=== PATIENT | male | born 1935 | race African-American/Black ===

== ENCOUNTER 2019-05-23 07:42 | Inpatient (IN) | payer MEDICARE, MEDICAID ==
[~2019-05-23] VITALS: Ht 170.2 cm; Wt 64.0 kg
[~2019-05-23 07:42] MED LIST: ASPI-1393 PO
[2019-05-23 08:22] LABS: EOSINOPHILS % 7.8 % (0.0-5.0); HEMATOCRIT. 33.4 % (42.0-52.0); HEMOGLOBIN. 11.1 g/dL (14.0-18.0); LYMPHOCYTES % 52.6 % (20.0-50.0); MEAN CORPUSCULAR VOLUME 98.9 fL (80.0-94.0); MEAN PLATELET VOLUME 8.5 fl (7.4-10.4); NEUTROPHILS % 31.6 % (40.0-76.0); PLATELET 159 x1000/uL (130-400); RED BLOOD CELL COUNT 3.38 mill/uL (4.7-6.1)
[2019-05-23 08:28] LABS: CLARITY URINE CLEAR (CLEAR); COLOR URINE YELLOW (YELLOW); KETONES URINE NEGATIVE (NEGATIVE); LEUKOCYTE ESTERASE URINE NEGATIVE (NEGATIVE); NITRITE URINE NEGATIVE (NEGATIVE); OCCULT BLOOD URINE NEGATIVE (NEGATIVE); PH URINE 5.5 (4.5-8.0); PROTEIN URINE NEGATIVE (NEGATIVE); UROBILINOGEN URINE 0.2 E.U./dL (0.2-1.0)
[2019-05-23 08:29] LABS: CHLORIDE 107 mEq/L (98-107)
[2019-05-23 08:30] LABS: PROTHROMBIN TIME 10.2 sec (9.6-11.0)
[2019-05-23 08:33] LABS: ETHANOL BLOOD < 10 mg/dL
[2019-05-23 08:36] LABS: LDL CHOLESTEROL 96 mg/dL (5-100)
[2019-05-23 08:49] LABS: *AMPHETAMINES SCREEN URINE NEGATIVE (NEGATIVE); *BARBITURATES SCREEN URINE NEGATIVE (NEGATIVE); *BENZODIAZEPINES SCREEN URINE NEGATIVE (NEGATIVE); *COCAINE SCREEN URINE NEGATIVE (NEGATIVE); METHADONE URINE SCREEN NEGATIVE (NEGATIVE); OPIATES URINE SCREEN NEGATIVE (NEGATIVE)
[2019-05-23 08:50] LABS: CANNABINOID URINE SCREEN NEGATIVE (NEGATIVE); PHENCYCLIDINE URINE SCREEN NEGATIVE (NEGATIVE)
[2019-05-23] MEDS ORDERED: ASPIRIN 325MG EC TABLET PO ONE (09:30)
[2019-05-23 14:20] VITALS: BP 109/57
[2019-05-23 14:30] VITALS: BP 109/57
[2019-05-23] MEDS ORDERED: HYDROCODONE/ACETAMINOPHEN 5/325MG TABLET PO PRN (15:45)
[2019-05-23] MEDS ORDERED: GUAIFENESIN 200MG/10ML SUGAR FREE UDC PO PRN (15:45)
[2019-05-23] MEDS ORDERED: ACETAMINOPHEN 650MG SUPP PR PRN (15:45)
[2019-05-23] MEDS ORDERED: DOCUSATE SODIUM 100MG CAPSULE PO PRN (15:45)
[2019-05-23] MEDS ORDERED: CLONIDINE 0.1MG TABLET PO PRN (15:45)
[2019-05-23] MEDS ORDERED: IPRATROPIUM/ALBUTEROL 0.5-3(2.5)MG/3ML NEB NEB PRN (15:45)
[2019-05-23] MEDS ORDERED: LORAZEPAM 0.5MG TABLET PO PRN (15:45)
[2019-05-23] MEDS ORDERED: ACETAMINOPHEN 325MG TABLET PO PRN (15:45)
[2019-05-23] MEDS ORDERED: MAGNESIUM/ALUMINUM HYDROXIDE/SIMETHICONE 30ML UDC PO PRN (15:45)
[2019-05-23] MEDS ORDERED: DIPHENHYDRAMINE 50MG/ML VIAL IV PRN (15:45)
[2019-05-23] MEDS ORDERED: ONDANSETRON HCL 4MG/2ML INJ IV PRN (15:45)
[2019-05-23] MEDS ORDERED: NA PHOS,M-B/NA PHOS,DI-BA ENEMA 118ML PR PRN (15:45)
[2019-05-23 16:00] VITALS: BP 111/59
[2019-05-23] MEDS: ENOXAPARIN 30MG/0.3ML SYR SUBCUT SCH (18:35)
[2019-05-23 20:00] VITALS: BP 119/72
[2019-05-23] MEDS ORDERED: INFLUENZA VIRUS VACCINE(AFLURIA) 0.5ML SYR IM ONE (21:00)
[2019-05-23] MEDS: LEVETIRACETAM 500MG TABLET PO SCH (22:56)
[2019-05-23] MEDS: ATORVASTATIN CALCIUM 10MG TABLET PO SCH (22:56)
[2019-05-24] VITALS: BP 98/55
[2019-05-24 00:05] LABS: CREATINE KINASE 107 IU/L (39-308)
[2019-05-24 00:06] LABS: CREATINE KINASE MB FRACTION < 1.0 ng/mL (0.5-3.6)
[2019-05-24 04:00] VITALS: BP 96/58
[2019-05-24 07:10] LABS: BASOPHILS % 0.8 % (0.0-2.0); HEMATOCRIT. 29.8 % (42.0-52.0); LYMPHOCYTES % 50.8 % (20.0-50.0); MEAN CORPUSCULAR VOLUME 98.3 fL (80.0-94.0); MEAN PLATELET VOLUME 9.1 fl (7.4-10.4); MONOCYTES % 8.5 % (2.0-8.0); NEUTROPHILS % 32.9 % (40.0-76.0); PLATELET 152 x1000/uL (130-400); RED BLOOD CELL COUNT 3.03 mill/uL (4.7-6.1); RED CELL DISTRIBUTION WIDTH 13.1 % (11.6-14.6)
[2019-05-24 07:25] LABS: CHLORIDE 108 mEq/L (98-107)
[2019-05-24 07:43] LABS: LDL CHOLESTEROL 86 mg/dL (5-100)
[2019-05-24 07:45] LABS: HDL CHOLESTEROL 70 mg/dL (40-59); T4 FREE 1.18 ng/dL (0.76-1.46)
[2019-05-24 07:48] LABS: CREATINE KINASE 75 IU/L (39-308); CREATINE KINASE MB FRACTION < 1.0 ng/mL (0.5-3.6)
[2019-05-24] MEDS ORDERED: ASPIRIN 81MG EC TABLET PO SCH (09:00)
[2019-05-24] MEDS: LEVETIRACETAM 500MG TABLET PO SCH ×2 (09:10→21:46)
[2019-05-24 12:00] VITALS: BP 98/50
[2019-05-24 16:00] VITALS: BP 104/54
[2019-05-24] MEDS: ENOXAPARIN 30MG/0.3ML SYR SUBCUT SCH (18:31)
[2019-05-24] MEDS: ATORVASTATIN CALCIUM 10MG TABLET PO SCH (21:46)
[2019-05-25] VITALS: BP 86/57
[2019-05-25 04:00] VITALS: BP 96/50
[2019-05-25 08:00] VITALS: BP 91/45
[2019-05-25 12:00] VITALS: BP 110/57
[2019-05-25] MEDS ORDERED: KEPP500 MT (13:09)
[2019-05-25 14:57] VITALS: BP 110/57
== END 2019-05-25 17:55 | disposition home or self-care (01) | DRG 69 ==
LOC: ER 07:42 → 6WST 10:19 → EDBEDREQ 10:24 → EDBEDREQSVC 10:24 → EDBEDREQTM 10:25 → ENRESERV 12:56
PROVIDERS: ADMIT Ophthalmology; ATTEND Ophthalmology
DX: G45.9 Transient cerebral ischemic attack, unspecified (principal); G40.909 Epilepsy, unspecified, not intractable, without status epilepticus; D64.9 Anemia, unspecified; E78.5 Hyperlipidemia, unspecified; F10.10 Alcohol abuse, uncomplicated; I44.30 Unspecified atrioventricular block; N18.9 Chronic kidney disease, unspecified; I08.0 Rheumatic disorders of both mitral and aortic valves; I12.9 Hypertensive chronic kidney disease with stage 1 through stage 4 chronic kidney disease, or unspecified chronic kidney disease; I25.10 Atherosclerotic heart disease of native coronary artery without angina pectoris; Z87.891 Personal history of nicotine dependence; Z86.73 Personal history of transient ischemic attack (TIA), and cerebral infarction without residual deficits; Z79.82 Long term (current) use of aspirin; Z79.899 Other long term (current) drug therapy
CPT/HCPCS: 36415; 71045; 80061; 80305; 80320; 81003; 82550; 82553; 83036; 83721; 84439; 84443; 84484; 90686; 92610; 93005; 93880; 95816; 97161; 97166; 99285; J1650; J7620; G0480